=== PATIENT | male | born 1960 | race Caucasian/White ===

== ENCOUNTER 2021-03-24 09:58 | Day surgery (SDC) | payer OTHER ==
[~2021-03-24] VITALS: Ht 172.7 cm; Wt 120.0 kg
[2021-03-24] MEDS ORDERED: APIX5TAB PO (10:39)
[2021-03-24] MEDS ORDERED: CYAN50002 PO (10:39)
[2021-03-24] MEDS ORDERED: HYDR25TA6 PO (10:39)
[2021-03-24] MEDS ORDERED: METO25TA35 PO (10:39)
[2021-03-24] MEDS ORDERED: CHOL10003 PO (10:39)
[2021-03-24 11:01] LABS: BASOPHILS % (AUTO) 1 % (0-1); EOSINOPHILS % (AUTO) 2 % (1-7); LYMPHOCYTES % (AUTO) 31 % (22-44); MEAN CORPUSCULAR HEMOGLOBIN 30.6 pg (27.5-34.5); MEAN PLATELET VOLUME 7.2 fL (7.4-10.4); MONOCYTES % (AUTO) 7 % (2-9); NEUTROPHILS % (AUTO) 59 % (42-75); PLATELET COUNT 257 x10^3/uL (130-400); RED BLOOD COUNT 5.13 x10^6/uL (4.38-5.82)
[2021-03-24 11:12] LABS: ANION GAP 3 mmol/L (5-15); CALCIUM 8.9 mg/dL (8.5-10.1); CHLORIDE 105 mmol/L (98-107); CREATININE 1.32 mg/dL (0.7-1.3)
[2021-03-24] MEDS ORDERED: PROPOFOL 10 MG/ML, 20ML ONE (11:43)
[2021-03-24] MEDS ORDERED: DIGO125T85 PO (12:48)
== END 2021-03-24 13:09 | disposition home or self-care (01) ==
LOC: CACL 09:58
PROVIDERS: ATTEND Internal Medicine Cardiovascular Disease
DX: I48.0 Paroxysmal atrial fibrillation (principal); I10 Essential (primary) hypertension; G47.33 Obstructive sleep apnea (adult) (pediatric); F32.9 Major depressive disorder, single episode, unspecified; E66.9 Obesity, unspecified; Z68.41 Body mass index [BMI] 40.0-44.9, adult; Z79.01 Long term (current) use of anticoagulants; Z79.899 Other long term (current) drug therapy
CPT/HCPCS: 36415; 80048; 85025; 92960; J2704

== ENCOUNTER 2021-03-29 09:30 | Inpatient (IN) | payer OTHER ==
[~2021-03-29] VITALS: Ht 172.7 cm; Wt 119.1 kg
[~2021-03-29 09:30] MED LIST: APIX5TAB PO; CHOL10003 PO; CYAN50002 PO; DIGO125T85 PO; HYDR25TA6 PO; METO25TA35 PO
[2021-03-29 10:10] VITALS: BP 125/88
[2021-03-29] MEDS ORDERED: BISACODYL 10 MG SUPP PR PRN (11:00)
[2021-03-29] MEDS ORDERED: ACETAMINOPHEN 650 MG/20.3 ML UDC PO PRN (11:00)
[2021-03-29] MEDS ORDERED: PLEASE ENTER HEIGHT AND WEIGHT MC SCH (11:00)
[2021-03-29] MEDS: SODIUM CHLORIDE FLUSH 10ML SYR IVF SCH ×2 (11:05→20:20)
[2021-03-29 11:40] LABS: ANION GAP 7 mmol/L (5-15); CALCIUM 8.9 mg/dL (8.5-10.1); CHLORIDE 106 mmol/L (98-107)
[2021-03-29 11:46] LABS: CHOL/HDL RATIO 3.7; CHOLESTEROL, TOTAL 191 mg/dL (140-239); CREATININE 1.23 mg/dL (0.7-1.3); HDL CHOL % 27 % (26-37); HDL CHOLESTEROL (DIRECT) 51 mg/dL (40-60); LDL CHOLESTEROL,CALCULATED 100 mg/dL (54-169); TRIGLYCERIDES 202 mg/dL (50-200); VLDL CHOLESTEROL 40 mg/dL (0-25)
[2021-03-29] MEDS: APIXABAN 5 MG TABLET PO SCH ×2 (11:52→20:20)
[2021-03-29] MEDS: SOTALOL 120MG TABLET PO SCH ×2 (11:53→20:20)
[2021-03-29 12:40] VITALS: BP 114/78
[2021-03-29] MEDS: METOPROLOL TARTRATE 50 MG TAB PO SCH ×2 (13:47→22:05)
[2021-03-29 19:38] VITALS: BP 129/85
[2021-03-29 22:00] VITALS: BP 112/77
[2021-03-30 05:26] VITALS: BP 132/91
[2021-03-30] MEDS: METOPROLOL TARTRATE 50 MG TAB PO SCH ×3 (06:19→21:35)
[2021-03-30] MEDS: SOTALOL 120MG TABLET PO SCH ×2 (06:19→18:29)
[2021-03-30 06:44] VITALS: BP 135/91
[2021-03-30] MEDS: DIGOXIN 0.125 MG TABLET PO SCH (08:37)
[2021-03-30] MEDS: APIXABAN 5 MG TABLET PO SCH ×2 (08:37→21:34)
[2021-03-30] MEDS: HYDROCHLOROTHIAZIDE 12.5 MG CAPSULE PO SCH (08:38)
[2021-03-30] MEDS: SODIUM CHLORIDE FLUSH 10ML SYR IVF SCH ×2 (08:38→21:00)
[2021-03-30 13:32] VITALS: BP 115/86
[2021-03-30 19:53] VITALS: BP 120/85
[2021-03-31 04:52] VITALS: BP 128/98
[2021-03-31] MEDS: SOTALOL 120MG TABLET PO SCH ×2 (05:36→17:51)
[2021-03-31 07:41] VITALS: BP 124/85
[2021-03-31] MEDS: APIXABAN 5 MG TABLET PO SCH ×2 (08:30→21:35)
[2021-03-31] MEDS: DIGOXIN 0.125 MG TABLET PO SCH (08:30)
[2021-03-31] MEDS: SODIUM CHLORIDE FLUSH 10ML SYR IVF SCH ×2 (08:31→21:00)
[2021-03-31] MEDS: HYDROCHLOROTHIAZIDE 12.5 MG CAPSULE PO SCH (08:31)
[2021-03-31] MEDS: METOPROLOL TARTRATE 50 MG TAB PO SCH ×3 (08:31→21:35)
[2021-03-31 13:40] VITALS: BP 114/72
[2021-03-31 19:40] VITALS: BP 102/69
[2021-04-01 05:24] VITALS: BP 129/95
[2021-04-01] MEDS: SOTALOL 120MG TABLET PO SCH (05:30)
[2021-04-01 08:02] VITALS: BP 137/94
[2021-04-01] MEDS: SODIUM CHLORIDE FLUSH 10ML SYR IVF SCH (08:04)
[2021-04-01] MEDS: APIXABAN 5 MG TABLET PO SCH (08:07)
[2021-04-01] MEDS: DIGOXIN 0.125 MG TABLET PO SCH (08:07)
[2021-04-01] MEDS: HYDROCHLOROTHIAZIDE 12.5 MG CAPSULE PO SCH (08:08)
[2021-04-01] MEDS: METOPROLOL TARTRATE 50 MG TAB PO SCH (08:08)
[2021-04-01] MEDS ORDERED: SOTA120T14 PO (09:33)
[2021-04-01] MEDS ORDERED: METO50TA82 PO (09:33)
== END 2021-04-01 11:18 | disposition home or self-care (01) | DRG 309 ==
LOC: 5SO 09:46
PROVIDERS: ADMIT Internal Medicine Cardiovascular Disease; ATTEND Internal Medicine Cardiovascular Disease
PROC: 5A2204Z Restoration of Cardiac Rhythm, Single (ICD-10-PCS; principal; 2021-03-29)
DX: I48.91 Unspecified atrial fibrillation (principal); D68.59 Other primary thrombophilia; I10 Essential (primary) hypertension; Z87.891 Personal history of nicotine dependence
CPT/HCPCS: 36415; 80048; 80061; 80162; 85014; 85018; 93005; G0378

== ENCOUNTER 2021-04-21 06:05 | Day surgery (SDC) | payer OTHER ==
[~2021-04-21 06:05] MED LIST changes: +METO50TA82 PO; +SOTA120T14 PO
[2021-04-21] MEDS ORDERED: SOTA120T26 PO (06:28)
[2021-04-21] MEDS ORDERED: METO25TA35 PO (06:28)
[2021-04-21 06:44] LABS: BASOPHILS % (AUTO) 1 % (0-1); EOSINOPHILS % (AUTO) 4 % (1-7); LYMPHOCYTES % (AUTO) 35 % (22-44); MEAN CORPUSCULAR HEMOGLOBIN 29.9 pg (27.5-34.5); MEAN CORPUSCULAR HGB CONC 33.7 g/dL (33.2-36.2); MEAN PLATELET VOLUME 7.5 fL (7.4-10.4); MONOCYTES % (AUTO) 9 % (2-9); NEUTROPHILS % (AUTO) 52 % (42-75); PLATELET COUNT 228 x10^3/uL (130-400); RED BLOOD COUNT 5.25 x10^6/uL (4.38-5.82); RED CELL DISTRIBUTION WIDTH 13.4 % (9.4-14.8)
[2021-04-21 06:54] LABS: ANION GAP 7 mmol/L (5-15); CALCIUM 8.9 mg/dL (8.5-10.1); CHLORIDE 105 mmol/L (98-107); CREATININE 1.13 mg/dL (0.7-1.3)
[2021-04-21] MEDS ORDERED: PROPOFOL 10 MG/ML, 20ML ONE (07:47)
== END 2021-04-21 08:46 | disposition home or self-care (01) ==
LOC: CACL 06:05
PROVIDERS: ATTEND Internal Medicine Cardiovascular Disease
DX: I48.0 Paroxysmal atrial fibrillation (principal); I10 Essential (primary) hypertension; G47.30 Sleep apnea, unspecified; Z79.01 Long term (current) use of anticoagulants; Z79.899 Other long term (current) drug therapy
CPT/HCPCS: 36415; 80048; 85025; 92960; 93005; J2704